=== PATIENT | male | born 1960 | race Caucasian/White ===

== ENCOUNTER 2020-02-02 13:51 | Emergency (ER) | payer OTHER | END 2020-02-02 14:11 | disposition home or self-care (01) | LOC: JVIRT 13:51 | DX: U07.1 COVID-19 (principal) | CPT/HCPCS: C9803; Q3014-GT; U0003 ==

== ENCOUNTER 2024-04-22 06:18 | Inpatient (IN) | payer OTHER ==
[2024-04-18 15:28] VITALS: BMI 25.5
[2024-04-22] MEDS ORDERED: PROPOFOL 20 ML ONE ×4 (07:05→10:00)
[2024-04-22] MEDS ORDERED: MIDAZOLAM HCL 2 MG/2 ML SINGLE DOSE VIAL ONE (07:05)
[2024-04-22] MEDS ORDERED: TRANEXAMIC ACID 1000 MG/10 ML VIAL ONE (07:06)
[2024-04-22] MEDS ORDERED: ceFAZolin SODIUM 1 GM VIAL ONE (07:06)
[2024-04-22] MEDS ORDERED: DEXAMETHASONE SOD PHOSPHATE 10 MG/1 ML VIAL ONE (07:09)
[2024-04-22] MEDS ORDERED: BUPIVACAINE HCL/PF 0.5% (5 MG/ML) 30 ML VIAL IJ ONE (07:09)
[2024-04-22] MEDS ORDERED: ACETAMINOPHEN INJECTION 100 ML ONE (07:09)
[2024-04-22] MEDS ORDERED: BUPIVACAINE HCL/PF 0.5% (5MG/ML) 10 ML VIAL ONE (07:09)
[2024-04-22] MEDS ORDERED: VANCOMYCIN 1,000 MG VIAL (RESTRICTED TO ID ONLY) ONE (07:22)
[2024-04-22] MEDS ORDERED: ONDANSETRON 4 MG/2 ML VIAL IVPUSH PRN ×2 (07:37→10:36)
[2024-04-22] MEDS ORDERED: LACTATED RINGERS SOLUTION 1,000 ML IV SCH ×3 (07:45→10:45)
[2024-04-22] MEDS ORDERED: BUPIVICAINE 0.25%/MORPH PF/KETOROLAC - 51ML DISP.SYRINGE IA ONE (08:36)
[2024-04-22] MEDS ORDERED: KETOROLAC TROMETHAMINE 30 MG/1 ML VIAL ONE (09:40)
[2024-04-22] MEDS: BUPIVICAINE 0.25%/MORPH PF/KETOROLAC - 51ML DISP.SYRINGE IA ONE (10:02)
[2024-04-22] MEDS: VANCOMYCIN 1,000 MG VIAL (RESTRICTED TO ID ONLY) IVPB ONE ×2 (10:04)
[2024-04-22] MEDS: PATIENT'S OWN MEDICATION (NON-FORMULARY) (Carbidopa/Levodopa [Rytary Er 48.75 Mg-195 Mg Ca PO SCH ×2 (10:45→20:12)
[2024-04-22] MEDS: RASAGILINE MESYLATE 1 MG PO SCH (10:45)
[2024-04-22] MEDS: CEFAZOLIN 2 GM/D5W 2 GRAM/50 ML ML IVPB SCH (15:30)
[2024-04-22] MEDS: ACETAMINOPHEN 325 MG TABLET (FP) PO PRN (18:57)
[2024-04-22] MEDS: ATORVASTATIN CA 10 MG TABLET (FP) PO SCH (21:29)
[2024-04-22] MEDS: oxyCODONE HCL 5 MG TABLET PO PRN (21:29)
[2024-04-22] MEDS: SENNOSIDES/DOCUSATE COMBO (SENNA PLUS) TABLET (UD) PO SCH (21:29)
[2024-04-22] MEDS: GABAPENTIN 300 MG CAPSULE PO SCH (21:29)
[2024-04-23] MEDS: PATIENT'S OWN MEDICATION (NON-FORMULARY) (Carbidopa/Levodopa [Rytary Er 48.75 Mg-195 Mg Ca PO SCH (03:27)
[2024-04-23] MEDS: ENOXAPARIN NA (PORCINE) 40 MG/0.4 ML DISP.SYRIN SQ SCH (06:37)
[2024-04-23 08:29] LABS: HEMATOCRIT 36.7 % (35.4-49); HEMOGLOBIN 12.6 G/dL (11.7-16.9); MCH 30.2 pg (25.7-33.7); MCHC 34.3 g/dl (32.0-35.9); MEAN CELL VOLUME 88.1 fl (80-96); MEAN PLT VOLUME 8.6 fl (7.5-11.1); PLATELET COUNT 199.5 10^3/uL (134-434); RBC 4.17 10^6/uL (4.00-5.60); RDW 13.6 % (11.9-15.9); WHITE BLOOD COUNT 9.6 10^3/uL (4.0-10.8)
[2024-04-23 08:35] LABS: CALCIUM 8.5 mg/dl (8.5-10.1); CREATININE 0.6 mg/dl (0.6-1.3)
[2024-04-23] MEDS: CELECOXIB 200 MG CAPSULE PO SCH (09:06)
[2024-04-23] MEDS: PANTOPRAZOLE 40 MG TABLET PO SCH (09:06)
[2024-04-23] MEDS: ESCITALOPRAM OXALATE 10 MG TABLET PO SCH (09:06)
[2024-04-23] MEDS: MULTIVITAMINS (DAILY MVI) TABLET (FP) PO SCH (09:06)
[2024-04-23 22:00] VITALS: BP 106/72; PULSE 79; RESP 16; TEMP 98.1
== END 2024-04-23 22:27 | DRG 470 ==
LOC: FASU 06:18 → FM/S 13:21
PROVIDERS: ADMIT Orthopaedic Surgery; ATTEND Orthopaedic Surgery
PROC: 8E0Y0CZ Robotic Assisted Procedure of Lower Extremity, Open Approach (ICD-10-PCS; 2024-04-22)
PROC: 0SRD0JA Replacement of Left Knee Joint with Synthetic Substitute, Uncemented, Open Approach (ICD-10-PCS; principal; 2024-04-22 08:35)
DX: M17.12 Unilateral primary osteoarthritis, left knee (principal); G20.A1 Parkinson's disease without dyskinesia, without mention of fluctuations
CPT/HCPCS: 36415; 73560-TC-LT-FY; 80048; 85027; 94760; 97010-GP; 97116-GP; 97162-GP; C1776; J0131; J1100